=== PATIENT | female | born 1995 | race Caucasian/White ===

== ENCOUNTER 2024-06-10 08:42 | Emergency (ER) | payer MEDICAID ==
[~2024-06-10] VITALS: Ht 157.5 cm; Wt 50.0 kg
[2024-06-10 08:49] VITALS: O2SAT 98
[2024-06-10] MEDS ORDERED: KETO5DRO EACHEYE (09:14)
[2024-06-10] MEDS ORDERED: BENZ100C86 MT (09:14)
[2024-06-10] MEDS ORDERED: IBUP-2028 MT (09:14)
[2024-06-10] MEDS ORDERED: CETI10CA2 MT (09:14)
[2024-06-10] MEDS: DEXAMETHASONE 10 MG/ML VIAL PO ONE (09:24)
[2024-06-10 09:38] VITALS: BP 110/68; PULSE 78; RESP 18; TEMP 36.7; O2SAT 98
== END 2024-06-10 09:42 | disposition home or self-care (01) ==
LOC: ER 08:42
DX: H10.13 Acute atopic conjunctivitis, bilateral (principal); J06.9 Acute upper respiratory infection, unspecified; Z88.2 Allergy status to sulfonamides; Z98.890 Other specified postprocedural states; Z79.899 Other long term (current) drug therapy
CPT/HCPCS: 99283; J1100

== ENCOUNTER 2024-06-21 15:04 | Emergency (ER) | payer MEDICAID ==
[~2024-06-21] VITALS: Ht 165.1 cm; Wt 59.0 kg
[~2024-06-21 15:04] MED LIST: BENZ100C86 MT; CETI10CA2 MT; IBUP-2028 MT; KETO5DRO EACHEYE
[2024-06-21 15:06] VITALS: O2SAT 97
[2024-06-21 15:27] VITALS: BP 111/75; PULSE 88; RESP 15; TEMP 37.2; O2SAT 99
[2024-06-21] MEDS ORDERED: CEPH500C2 MT (18:57)
[2024-06-21] MEDS ORDERED: NAPR-681 MT (18:57)
[2024-06-21] MEDS ORDERED: CIPR2.5D17 EACHEYE (18:57)
== END 2024-06-21 19:43 | disposition home or self-care (01) ==
LOC: ER 15:04
DX: J02.9 Acute pharyngitis, unspecified (principal); R59.0 Localized enlarged lymph nodes; H10.9 Unspecified conjunctivitis; Z88.2 Allergy status to sulfonamides
CPT/HCPCS: 71045; 81025; 87070; 87430; 99284

== ENCOUNTER 2024-12-23 12:37 | Emergency (ER) | payer MEDICAID ==
[~2024-12-23] VITALS: Ht 165.1 cm; Wt 52.5 kg
[~2024-12-23 12:37] MED LIST changes: +CEPH500C2 MT; +CIPR2.5D17 EACHEYE; +NAPR-681 MT
[2024-12-23 12:51] VITALS: O2SAT 100
[2024-12-23 13:18] VITALS: BP 113/81; PULSE 75; RESP 17; TEMP 37.3; O2SAT 100
[2024-12-23 15:11] LABS: BASOPHILS % 0.6 % (0.0-2.0); EOSINOPHILS % 0.8 % (0.0-5.0); HEMATOCRIT. 38.7 % (36.0-48.0); HEMOGLOBIN. 13.0 g/dL (12.0-16.0); LYMPHOCYTES % 40.7 % (20.0-50.0); MEAN PLATELET VOLUME 10.0 fl (7.4-10.4); MONOCYTES % 8.9 % (2.0-8.0); NEUTROPHILS % 49.0 % (40.0-76.0); PLATELET 159 x1000/uL (130-400); RED BLOOD CELL COUNT 3.89 mill/uL (4.2-5.4); RED CELL DISTRIBUTION WIDTH 13.1 % (11.6-14.6)
[2024-12-23 15:23] LABS: CREATININE 0.7 mg/dL (0.6-1.0)
[2024-12-23 15:24] LABS: TROPONIN I HIGH SENSITIVITY < 4 ng/L (3.0-34); UREA NITROGEN BLOOD 5 mg/dL (9-23)
[2024-12-23] MEDS ORDERED: LIDO-53 TP (16:10)
[2024-12-23] MEDS ORDERED: IBUP-2028 MT (16:10)
== END 2024-12-23 16:17 | disposition home or self-care (01) ==
LOC: ER 12:37
DX: R06.02 Shortness of breath (principal); R07.89 Other chest pain; M43.6 Torticollis; Z79.3 Long term (current) use of hormonal contraceptives; Z88.2 Allergy status to sulfonamides
CPT/HCPCS: 36415; 71045; 80048; 81025; 84484; 85025; 93005; 99285